=== PATIENT | male | born 1995 | race Caucasian/White ===

== ENCOUNTER 2018-09-23 18:39 | Emergency (ER) | payer OTHER ==
[~2018-09-23] VITALS: Ht 188 cm; Wt 63.0 kg
--- NOTE | 2018-09-23 18:58 | ED Fall/Injury ---
General Chief Complaint: Trauma-Non Activation Stated Complaint: FALL - L JAW SWELLING Nursing Triage Note: Fall Source: patient Exam Limitations: no limitations History of Present Illness Date Seen by Provider: Sep 23, 2018 Time Seen by Provider: 18:55 Initial Comments To ER with reports of left-sided facial pain. This began yesterday, he fell down 2 stairs striking the left side of his head on the floor. There was no loss of consciousness but he's had a persistent headache since then. No neck pain. No vomiting. He does have some bruising behind the left ear. Some dried blood from a scratch at the left ear canal. Denies any rhinorrhea. Complains of pain over the left side of the jaw, unable to open his mouth fully but does feel like his teeth line up as they should. Occurred: just prior to arrival Severity: moderate Injuries/Pain Location: head, face Context: tripped Loss of Consciousness: no loss of consciousness Associated Symptoms (Fall): Headache Allergies and Home Medications Allergies Coded Allergies: No Known Drug Allergies (Unverified , 09/23/18) Home Medications Hydrocodone Bit/Acetaminophen 1 Tab Tab, 1 EACH PO Q4-6HR PRN for PAIN-MODERATE Prescribed by: PAPA MANUEL on 09/23/182000 Patient Home Medication List Home Medication List Reviewed: Yes Review of Systems Review of Systems Constitutional: see HPI Eyes: No Symptoms Reported Ears, Nose, Mouth, Throat: see HPI Respiratory: no symptoms reported Cardiovascular: no symptoms reported Genitourinary: no symptoms reported Musculoskeletal: no symptoms reported Skin: no symptoms reported Psychiatric/Neurological: No Symptoms Reported Past Oofbabl-Difqnz-Mivxbp Hx Patient Social History Alcohol Use: Occasionally Uses Recreational Drug Use: No Smoking Status: Current Everyday Smoker Type Used: Cigarettes 2nd Hand Smoke Exposure: Yes Recent Foreign Travel: No Contact w/Someone Who Travel: No Recent Infectious Disease Expo: No Recent Hopitalizations: No Immunizations Up To Date PED Vaccines UTD: Yes Seasonal Allergies Seasonal Allergies: Yes Past Medical History Surgeries: Yes Appendectomy Respiratory: No Cardiac: No Neurological: No Genitourinary: No Gastrointestinal: No Musculoskeletal: No Endocrine: No HEENT: No Cancer: No Psychosocial: No Integumentary: No Physical Exam Vital Signs Vital Signs - First Documented 09/23/18 18:45 Temp 97.8 Pulse 53 Resp 16 B/P (MAP) 117/68 (84) Pulse Ox 99 O2 Delivery Room Air Capillary Refill : Less Than 3 Seconds Height, Weight, BMI Height: 6'2.00" Weight: 139lbs. oz. 63.659597bn; BMI Method:Stated General Appearance: WD/WN, no apparent distress HEENT: PERRL/EOMI, normal ENT inspection, TMs normal, other (there is an abrasion at the outer aspect of the left ear canal without active bleeding but there is some dried blood here. The tympanic membrane cannot be visualized due to cerumen but there is no other blood in the external ear canal. There is a faint bruise over the mastoid process On the left. There is obvious swelling over the left parotid region. No epistaxis.) Neck: No tender lateral, No tender midline Cardiovascular: regular rate, rhythm, no murmur Respiratory: normal breath sounds, no respiratory distress, no accessory muscle use Gastrointestinal: normal bowel sounds, soft Extremities: normal range of motion, non-tender Neurologic/Psychiatric: alert, normal mood/affect, oriented x 3 Skin: normal color, warm/dry Stormy Coma Score Best Eye Response: (4) Open Spontaneously Best Verbal Response: (5) Oriented Best Motor Response: (6) Obeys Commands Stormy Total: 15 Progress/Results/Core Measures Results/Orders My Orders Orders - PAPA MANUEL APRN Ct Head/Face/Cervical Wo (09/23/18 18:50) Rx-Ondansetron Po (Rx-Zofran Po) (09/23/18 20:08) Rx-Ondansetron Po (Rx-Zofran Po) (09/23/18 20:11) Rx-Hydrocodone/Apap 5-325 Mg (Rx-Vicodin (09/23/18 20:30) Medications Given in ED Current Medications Medications Dose Ordered Sig/Natalya Route Start Time Stop Time Status Last Admin Dose Admin Acetaminophen/ Hydrocodone Bitart 1 ea Q4H PRN PO 09/23/18 20:30 09/23/18 20:20 1 EA Vital Signs/I&O 09/23/18 09/23/18 18:45 20:27 Temp 97.8 98.2 Pulse 53 56 Resp 16 16 B/P (MAP) 117/68 (84) 113/69 (84) Pulse Ox 99 99 O2 Delivery Room Air Room Air Blood Pressure Mean: 84 Diagnostic Imaging Diagonstic Imaging: CT Comments NAME: XIAO MOMIN [facility] REC#: [id number] PT STATUS: REG ER : 1995 PHYSICIAN: PAPA MANUEL APRN ADMIT DATE: 09/23/18/ER Draft Date of Exam:09/23/18 CT HEAD/FACE/CERVICAL WO EXAMINATION: CT brain, CT maxillofacial, and CT cervical spine from 09/23/2018. TECHNIQUE: Multiple contiguous axial images were obtained through the head, neck, and facial bones without the use of intravenous contrast. Sagittal and coronal reformations through the cervical spine and facial bones were also performed. Auto Exposure Controls were utilized during the CT exam to meet ALARA standards for radiation dose reduction. INDICATION: Fell, jaw pain and swelling. BRAIN: FINDINGS: There is no hemorrhage or infarct. No mass, mass effect, or midline shift. No hydrocephalus. The calvarium appears intact with no displaced fractures appreciated. No acute process is seen in the visualized paranasal sinuses or mastoid air cells. IMPRESSION: Negative head CT. CT MAXILLOFACIAL: FINDINGS: There is a lucency noted predominantly on the coronal reconstructed imaging within the left mandibular body. This could represent a nutrient foramen versus a nondisplaced fracture line. There is a lucency noted along the left styloid process, which is rather elongated but asymmetric compared to the right side with the lucent area possibly a focal fracture versus normal variant. There is mild fat stranding and soft tissue prominence overlying the left aspect of the mandible. The visualized paranasal sinuses demonstrate mucosal thickening. No air-fluid levels appreciated. Both globes appear intact as visualized. IMPRESSION: 1. Possible fracture through the mid aspect of the left styloid process versus normal variant with a vague lucent area along the left mandibular body, only seen on coronal imaging, and possibly a nutrient foramen with a nondisplaced fracture line, however, not excluded; correlate for point tenderness. Adjacent soft tissue swelling is visualized. 2. Chronic findings in the sinuses. CT CERVICAL SPINE: FINDINGS: Normal alignment of the spine is seen. No subluxations or compression fractures appreciated. There is degenerative change in the intervertebral disc space at C4-C5 with anterior spurring noted and endplate irregularity consistent with chronic degenerative disease. An acute fracture, however, is not appreciated. The visualized lung apices are clear. Prevertebral soft tissues are unremarkable. IMPRESSION: 1. No acute osseous abnormality. Diffuse degenerative findings noted, especially at the C4-C5 level. If there is persistent pain, however, MRI recommended. Dictated on workstation # [id number] Dict: 09/23/181914 Trans: 09/23/181946 [id number] Interpreted by: FRANCO ALANIZ MD Electronically signed by: Departure Impression Primary Impression: Facial contusion Additional Impression: questionable left mandibular fracture Disposition: 01 HOME, SELF-CARE Condition: Stable Departure-Patient Inst. Decision time for Depature: 19:56 Referrals: DEJA MILLER DDS NO,LOCAL PHYSICIAN (PCP) Primary Care Physician Patient Instructions: Contusion (DC), Jaw Fracture Add. Discharge Instructions: 1. There appears to be a nondisplaced fracture through the left side of your mandible. Radiologist can't say that it is a fracture with certainty, it could simply be a vessel running through the bone which is a normal finding. Either way if it is a fracture should heal just fine on its own in a few weeks. Very soft diet for the next 2-3 weeks. Would be anything that requires very little tissue such as mashed potatoes, shakes, puddings. Follow-up with Dr. Miller or an oral surgeon of your choosing within 1-2 weeks for follow-up. Pain medication as directed. All discharge instructions reviewed with patient and/or family. Voiced understanding. Scripts Hydrocodone Bit/Acetaminophen (Hydrocodone/Acetaminophen 5/325mg Tablet) 1 Tab Tab 1 EACH PO Q4-6HR PRN for PAIN-MODERATE MDD 10 for 3 Days, #10 TAB Prov: PAPA MANUEL REMOTELY OPERATED VEHICLE 09/23/18 PAPA MANUEL REMOTELY OPERATED VEHICLE Sep 23, 2018 18:58
--- NOTE | 2018-09-23 19:47 | Diagnostic Imaging Report ---
EXAMINATION: CT brain, CT maxillofacial, and CT cervical spine from 09/23/2018. TECHNIQUE: Multiple contiguous axial images were obtained through the head, neck, and facial bones without the use of intravenous contrast. Sagittal and coronal reformations through the cervical spine and facial bones were also performed. Auto Exposure Controls were utilized during the CT exam to meet ALARA standards for radiation dose reduction. INDICATION: Fell, jaw pain and swelling. BRAIN: FINDINGS: There is no hemorrhage or infarct. No mass, mass effect, or midline shift. No hydrocephalus. The calvarium appears intact with no displaced fractures appreciated. No acute process is seen in the visualized paranasal sinuses or mastoid air cells. IMPRESSION: Negative head CT. CT MAXILLOFACIAL: FINDINGS: There is a lucency noted predominantly on the coronal reconstructed imaging within the left mandibular body. This could represent a nutrient foramen versus a nondisplaced fracture line. There is a lucency noted along the left styloid process, which is rather elongated but asymmetric compared to the right side with the lucent area possibly a focal fracture versus normal variant. There is mild fat stranding and soft tissue prominence overlying the left aspect of the mandible. The visualized paranasal sinuses demonstrate mucosal thickening. No air-fluid levels appreciated. Both globes appear intact as visualized. IMPRESSION: 1. Possible fracture through the mid aspect of the left styloid process versus normal variant with a vague lucent area along the left mandibular body, only seen on coronal imaging, and possibly a nutrient foramen with a nondisplaced fracture line, however, not excluded; correlate for point tenderness. Adjacent soft tissue swelling is visualized. 2. Chronic findings in the sinuses. CT CERVICAL SPINE: FINDINGS: Normal alignment of the spine is seen. No subluxations or compression fractures appreciated. There is degenerative change in the intervertebral disc space at C4-C5 with anterior spurring noted and endplate irregularity consistent with chronic degenerative disease. An acute fracture, however, is not appreciated. The visualized lung apices are clear. Prevertebral soft tissues are unremarkable. IMPRESSION: 1. No acute osseous abnormality. Diffuse degenerative findings noted, especially at the C4-C5 level. If there is persistent pain, however, MRI recommended. Dictated by: Dictated on workstation # [id number]
[2018-09-23] MEDS ORDERED: ACHD5005 PO (20:01)
[2018-09-23] MEDS ORDERED: RX-ONDANSETRON 4 MG ODT (ZOFRAN) PPK #4 PO STA ×2 (20:08→20:11)
[2018-09-23 20:27] VITALS: BP 113/69
[2018-09-23] MEDS ORDERED: RX-HYDROCODONE/APAP 5/325 MG #4 TAB PK PO PRN (20:30)
== END 2018-09-23 20:31 | disposition home or self-care (01) ==
LOC: ER 18:41
DX: S00.83XA Contusion of other part of head, initial encounter (principal); F17.210 Nicotine dependence, cigarettes, uncomplicated; Z90.49 Acquired absence of other specified parts of digestive tract; W10.9XXA Fall (on) (from) unspecified stairs and steps, initial encounter; W22.8XXA Striking against or struck by other objects, initial encounter
CPT/HCPCS: 70450; 70486; 72125